=== PATIENT | male | born 1985 | race Caucasian/White ===

== ENCOUNTER 2016-07-20 04:13 | Emergency (ER) | payer BC, OTHER ==
[~2016-07-20] VITALS: Ht 175.3 cm; Wt 74.8 kg
[2016-07-20] MEDS ORDERED: FLUO40CA8 PO (04:37)
[2016-07-20] MEDS ORDERED: LEVE500T9 PO (04:37)
--- NOTE | 2016-07-20 06:00 | NUR ---
Patient A/Ox4.easily arousable. No distress noted
--- NOTE | 2016-07-20 06:31 | NUR ---
Called [facility] . Staff will olive picker patient in about 30mins
--- NOTE | 2016-07-20 06:39 | NUR ---
Patient discharged to home in stable conditon. Written and verbal after care instructions given. Patient verbalizes understanding of instructions. Walked out of ER with steady gait. patient elected to wait in waiting room for [facility] staff member for olive picker
[2016-07-20 06:40] VITALS: BP 133/77
== END 2016-07-20 06:40 | disposition home or self-care (01) ==
LOC: ER 04:15
DX: F11.20 Opioid dependence, uncomplicated (principal); F32.9 Major depressive disorder, single episode, unspecified; F41.1 Generalized anxiety disorder
CPT/HCPCS: 99283; A4663